=== PATIENT | female | born 1965 | race Hispanic/Latino ===

== ENCOUNTER 2017-12-19 18:33 | Inpatient (IN) | payer SELFPAY ==
[~2017-12-19] VITALS: Ht 162.6 cm; Wt 69.2 kg
--- NOTE | 2017-12-19 21:40 | NUR ---
IN TO START CEFEPIM INFUSION. PT SITTING UP IN BED AND WATCHING TV. NO COMPLAINTS OR REQUESTS AT THIS TIME. WILL CONTINUE TO MONITOR.
--- NOTE | 2017-12-19 22:38 | NUR ---
PT ARRIVED TO CCU ROOM 127 AT 2145 VIA STRETCHER, ACCOMPANIED BY HER SON SRINI WHO IS TRANSLATING FOR US. PT AMBULATED TO BED WITHOUT DIFFICULTY. ALERT/ORIENTED. REPORTS 7/10 PAIN IN EPIGASTRIC REGION OF ABDOMEN, DENIES NEED FOR PAIN MEDICATION AT THIS TIME, STATES SHE WANTS TO WAIT TO SEE IF IT GOES AWAY, STATES SHE IS VERY HUNGRY. LUNGS CLEAR, RA. HR REGULAR. BOWEL TONES ACTIVE, DENIES NAUSEA, ABDOMEN IS OBESE, SOFT, TENDER TO PALPATION. SKIN INTACT, CMS INTACT, NO EDEMA NOTED. IV PATENT, IVF INFUSING WNL. PT UP TO BATHROOM WITH SBA, STEADY ON FEET, VOIDED 500ML AND RETURNED TO BED. VSS, AFEBRILE. PT AND SON INSTRUCTED TO USE CALL LIGHT. WATER AND JELLO PROVIDED, WILL ADVANCE DIET TOLERATED. WILL CONTINUE TO MONITOR CLOSELY.
--- NOTE | 2017-12-20 00:10 | NUR ---
PT REPORTS 8/10 PAIN IN EPIGASTRIC AREA OF ABDOMEN, 15MG IV TORADOL ADMINISTERED. ASSESSMENT COMPLETED, NO CHANGES FROM PREVIOUS ASSESSMENT. PT'S SON AND DAUGHTER AT BEDSIDE. CALL LIGHT IS WITHIN REACH. NO FURHER REQUESTS AT THIS TIME, WILL CONTINUE TO MONITOR.
--- NOTE | 2017-12-20 00:33 | NUR ---
AMB TO BR TO VOID, NYA WELL. DRINKING WATER WELL. AT 3/4 OF SANDWICH BOX.
--- NOTE | 2017-12-20 02:42 | NUR ---
PT RESTING IN BED, NO APPARENT DISTRESS. RR:15, SPO2: 97% ON RA. HR:79. WILL ALLOW FOR REST AND CONTINUE TO MONITOR.
--- NOTE | 2017-12-20 03:55 | NUR ---
ASSESSMENT COMPLETED. PT REPORTS 8/10 EPIGASTRIC PAIN, 15MG IV TORADOL GIVEN, PT ALSO FOUND TO HAVE 100.0 TEMP. LUNGS REMAIN CLEAR, RA. HR REGULAR. BOWEL TONES ACTIVE, ABDOMEN REMAINS TENDER, DENIES NAUSEA. IV PATENT, INFUSING WNL. UP TO BATHROOM, WALKS INDEPENDENTLY ONCE I UNPLUG IV PUMP, VOIDED 800ML AND RETURNED TO BED. SON REMAINS AT BEDSIDE. CALL LIGHT IS WITHIN REACH, WILL CONTINUE TO MONITOR.
--- NOTE | 2017-12-20 06:25 | NUR ---
UP TO BATHROOM, VOIDED 900ML AND THEN RETURNED TO BED. TEMP:99.3 TEMPORALLY. CALL LIGHT IS WITHIN REACH, DENIES FURTHER NEEDS.
--- NOTE | 2017-12-20 08:37 | NUR ---
PT IN BED DENIES PAIN AT THIS TIME. FAMILY AT BEDSIDE TRANSLATING FOR PT.
--- NOTE | 2017-12-20 09:49 | NUR ---
PT AMBULATED TO THE BATHROOM AND BACK, DENIES PAIN AT THIS TIME. VOIDING WELL AND AMBULATES WITHOUT ASSISTANCE EXCEPT FOR THE IV POLE AND LINES.
--- NOTE | 2017-12-20 11:32 | NUR ---
DR BURGESS INTO SEE PT AT THIS TIME, NEW ORDERS AT THIS TIME. IV FLUIDS DECREASED TO 60MLS/HR, PT SITTING UP TO EAT LUNCH. PT WILL BE TRANSFERED TO THE M/S UNIT AT SOME POINT TODAY.
--- NOTE | 2017-12-20 13:15 | NUR ---
PT AWAKE IN BED APPEARS TO BE RESTING COMFORTABLE AT THIS TIME.
--- NOTE | 2017-12-20 14:27 | EKG ---
[facility] [address] [place], [place] [address] Signed Sinus tachycardia Otherwise normal ECG Confirmed by PABLO BURGESS MD ([id number]) on 12/20/2017 2:27:09 PM Electronically Signed By: PABLO BURGESS MD 12/20/17 1427 PATIENT NAME: GRAYMARILYNN HARRELL Electrocardiogram DATE OF : 61 PHYSICIAN: PABLO BURGESS MD REPORT #: [id number] REPORT IS CONFIDENTIAL AND NOT TO BE RELEASED WITHOUT AUTHORIZATION
--- NOTE | 2017-12-20 14:41 | NUR ---
PT UP TO THE BATHROOM VOIDED AND BACK TO BED AT THIS TIME. C/O BEING COLD TWO WARM BLANKETS GIVEN AND ROOM TEMP INCEASED ALSO AT THIS TIME.
--- NOTE | 2017-12-20 14:46 | NUR ---
PT DENIES PAIN AND MADE HC AT THIS TIME.
--- NOTE | 2017-12-20 15:14 | NUR ---
REPORT GIVEN TO M/S NURSE, ALL QUESTIONS ANSWERED AT THIS TIME. PT WILL GO TO ROOM 122 VIA CHAIR.
--- NOTE | 2017-12-20 15:33 | NUR ---
RECIEVED REPORT FROM KATHERINE ROMEO VIA TELEPHONE PRIOR TO PT TRANSFER TO FLOOR. PT TO ROOM 122 FROM CCU AT 1525 ACCOMPANIED BY KATHERINE ROMEO. TRANSFERED BY RECLINER.
--- NOTE | 2017-12-20 15:54 | NUR ---
PT IN BED, ON TELEPHONE WITH SON. PT IS ROMANSH SPEAKING. PT POINTED AT LEFT UPPER ABDOMEN, STATED DELORE. VIA PATIENT CONSUMER MARKETER PHONE PT RATED PAIN 9/10. GAVE TORADOL 30 MG IV PRN.
--- NOTE | 2017-12-20 16:07 | NUR ---
PT REPORTED THROUGH INTERPETER THAT SHE HAD A BM 12/18/17, "A LITTLE BIT", AND IS UNABLE TO BURP OR PASS GAS. DENIED NAUSEA OR EMESIS.
--- NOTE | 2017-12-20 16:35 | NUR ---
NOTIFIED DR. BURGESS THAT PT REPORTS LAST BM WAS 12/18/17, THAT IT WAS SMALL, THAT SHE HAS NOT BEEN ABLE TO BURP OR PASS GAS, AND THAT SHE FEELS OVERLY FULL, AND HAS HAD A DIMINISHED APETITE. ALSO NOTIFIED DR. BURGESS THAT PT DENIED NAUSEA OR EMESIS, BUT DID REPORT 9/10 PAIN TO LEFT UPPER ABD, AND RECIEVED PRN TORADOL. DR. BURGESS PALCED ORDERS FOR DUCOLAX, SENNA.
--- NOTE | 2017-12-20 17:11 | NUR ---
PT SITTING UP IN BED, EATING SOUP, YOGURT FOR DINNER, TOLERATING WELL THUS FAR. RATED PAIN 4/10 TO ABD NOW. PERSONAL SUPPLIES AND CALL LIGHT IN REACH.
--- NOTE | 2017-12-20 18:55 | NUR ---
PT SHOWERED, TOLERATED WELL. PERSONAL SUPPLIES AND CALL LIGHT IN REACH.
--- NOTE | 2017-12-20 19:00 | NUR ---
PATIENT SITTING UP IN BED, FINISHED WITH SHOWER. THIS DATA MIGRATION LEAD DRIED BATHROOM FLOOR. FRESH WATER GIVEN AND REMOVED IV WRAP AND TAPE. CALL LIGHT IN REACH.
--- NOTE | 2017-12-20 19:05 | NUR ---
RECEIVED REPORT FROM RN. PATIENT IS RESTING COMFORTABLY IN BED, BREATHING IS EVEN AND UNLABORED. DENIES NEEDS AT THIS TIME. REPORTS NO PAIN AT THIS TIME. CALL LIGHT WITHIN REACH.
--- NOTE | 2017-12-20 20:22 | NUR ---
PATIENT RESTING COMFORTABLY IN BED, BREATHING IS EVEN AND UNLABORED. DENIES NEEDS AT THIS TIME, DENIES PAIN. ASSESSMENT DONE, MEDICATIONS GIVEN. CALL LIGHT WITHIN REACH, FAMILY AT BEDSIDE.
--- NOTE | 2017-12-20 22:50 | NUR ---
PATIENT RESTING COMFORTABLY IN BED, BREATHING IS EVEN AND UNLABORED. FLACC SCORE OF 0. CALL LIGHT WITHIN REACH.
--- NOTE | 2017-12-21 00:52 | NUR ---
PATIENT REPORTS SORE THROAT, PRN CEPACOL LOZENGE GIVEN FOR COMFORT. DENIES FURTHER NEEDS. CALL LIGHT WITHIN REACH, FAMILY AT BEDSIDE.
--- NOTE | 2017-12-21 02:37 | NUR ---
PATIENT RESTING IN BED, BREATHING IS EVEN AND UNLABORED. STATES THAT SHE CONTINUES TO HAVE PAIN IN THROAT, STATES TO MANAGER OF SELECTION AND ASSESSMENT "IT IS OKAY." SHE SAYS THAT THE CEPACOL LOZENGE IS WORKING. DENIES FURTHER NEEDS. ALSO PROVIDED WARM TEA FOR THROAT COMFORT. CALL LIGHT WITHIN REACH.
--- NOTE | 2017-12-21 03:52 | NUR ---
Pt up to brp, voided, required one person standby assist, back to bed, no c/o pain. C/o abd distention and no bm since Thursday, primary RN Tony notified
--- NOTE | 2017-12-21 05:16 | NUR ---
PATIENT RESTING COMFORTABLY IN BED, BREATHING IS EVEN AND UNLABORED. FLACC SCORE OF 0. CALL LIGHT WITHIN REACH.
--- NOTE | 2017-12-21 06:11 | NUR ---
PATIENT'S NIGHT WAS UNEVENTFUL. SHE HAS BEEN RESTING OFF AND ON THROUGHOUT SHIFT. VSS, URINE OUTPUT QS. COMPLAINED OF PAIN IN THROAT, CEPACOL LOZENGES ORDERED. PATIENT CONTINUES TO REPORT EPIGASTRIC UPSET DUE TO LACK OF BOWEL MOVEMENT, NO BM THIS SHIFT. NIO BOWEL ROUTINE PUT IN PLACE, PRN SENNA GIVEN THIS SHIFT. BOWEL TONES ARE ACTIVE. SBA TO BATHROOM. IV INFUSING, CONTINUES TO HAVE POOR APPETITE. NO ACUTE CHANGES FROM BEGINNING OF SHIFT.
--- NOTE | 2017-12-21 06:37 | NUR ---
PATIENT RESTING IN BED, BREATHING IS EVEN AND UNLABORED. CONTINUES TO REPORT PAIN IN THROAT, CEPACOL LOZENGE GIVEN. OFFERED HOT TEA, PATIENT DENIED. NO OTHER NEEDS AT THIS TIME. CALL LIGHT WITHIN REACH.
--- NOTE | 2017-12-21 07:50 | NUR ---
PT RESTING IN BED, CAR CUSTOMIZER LINE USED TO TRANSLATE PLAN OF CARE FOR TODAY AND UPDATE OF LABS AND ABX TREATMENT. PT REPORTS 6/ PAIN 30MG I.V. TORDOL ADMINISTERED. MA CITRATE AT BEDSIDE TO PROMOTE BM. PT HAS NO OTHER QUESTIONS OR CONCERNS AT THIS TIME. AM ASSESSMENT COMPLETE.
--- NOTE | 2017-12-21 07:51 | NUR ---
PATIENT RESTING IN BED, FAMILY MEMBER IN ROOM. THIS CHRISTMAS TREE CONTRACTOR ASSISTED PATIENT TO WASH HANDS AND FACE WITH WARM WASH CLOTH. ORAL CARE SET UP IN BATHROOM FOR PATIENT. RN IN ROOM. FRESH ICE WATER AT BEDSIDE. CALL LIGHT IN REACH, NO OTHER NEEDS AT THIS TIME.
--- NOTE | 2017-12-21 09:30 | NUR ---
PT UP TO BATHROOM WITH STANDBY ASSIST. VOIDED 900ML. CLEAR YELLOW URINE, NO ODOR NOTED. BED CHANGE-DRAW SHEET AND PILLOW CASE. PT UP AMBUALTING IN HALLS AT THIS TIME WITH FAMILY. PT REPORTS PAIN 4/10 AT THIS TIME PER ICELANDIC SMILE CHART.
--- NOTE | 2017-12-21 10:15 | NUR ---
RN IN ROOM WITH PATIENT. FAMILY MEMBER IN ROOM. FRESH ICE WATER AT BEDSIDE TABLE, PATIENT SITTING UP WITH HOT PACK ON ABDOMEN. CALL LIGHT IN REACH. NO OTHER NEEDS AT THIS TIME.
--- NOTE | 2017-12-21 11:06 | NUR ---
PT REPORTS PAIN 8/10 PER MAURITIAN SMILE CHART AT RIGHT FLANK/ABD, RADIATES AROUND. HOT PACK PROVIDED AND TYLENOL ADMINISTERED. UPDATED ON PT PAIN AND ACTIVITY. NO NEW ORDERS AT THIS TIME.
--- NOTE | 2017-12-21 12:01 | NUR ---
PATIENT SITTING UP IN BED WITH HOT PAD ON ABDOMEN. RN IN ROOM ADMINISTERING MEDS. VITALS TAKEN. FRESH ICE WATER AT BEDSIDE TABLE. CALL LIGHT IN REACH. NO OTHER NEEDS AT THIS TIME.
--- NOTE | 2017-12-21 13:21 | NUR ---
INTO PT ROOM COMPLETED ASSESSMENT AND DISCUSSED PLAN OF CARE WITH PATIENT AND FAMILY AT BEDSIDE INCLUDING PATIENT'S SON. PT REPORTS SORE THROAT AND COUGH. MD TO PLACE NEW ORDERS WELL SUPPOSITORY TO HELP WITH CONSTIPATION.
--- NOTE | 2017-12-21 14:50 | NUR ---
MET WITH PATIENT AND HER SON SRINI WHO SPEAKS FLUENT CITIZEN OF [place]. PATIENT SPEAKS MINIMAL AND SO HE AND HIS INTERPRETED. SHE IS FEELING MUCH BETTER. WE DISCUSSED HER NEEDING A PCP AND IMPORTANCE OF THIS. THEY STATE THEY ARE GOING TO TAKE HER TO [facility] IN [place] AND GET HER SIGNED UP. DISCUSSED IMPORTANCE OF UNDERSTANDING DISCHARGE INSTRUCTIONS, MEDICATIONS, ACTIVITY AND FOLLOW UP NEED. THEY ALL STATE UNDERSTANDING. THEY STATED THAT DR BURGESS WAS IN AND HE ANSWERED QUESTIONS, TOO. THEY WILL TRY TO BE HERE FOR DISCHARGE TO MAKE SURE PATIENT UNDERSTANDS, IF NOT, WE CAN CALL THEM AND THEY WILL TALK WITH HER BY PHONE.
--- NOTE | 2017-12-21 14:54 | NUR ---
PT UP AMBULATING IN HALLS. HAD SMEAR BM. SUPPOSITORY GIVEN TO PATIENT, SHE WANTED TO PLACE IT HERSELF. WILL MONITOR FOR BM. PT REPORTS PAIN IS 3-4/10 AT THIS TIME SHE SAID SHE WOULD LIKE THE MOTRIN, ADMINISTERED.
--- NOTE | 2017-12-21 15:07 | NUR ---
PATIENT RESTING. RN IN ROOM. VITALS TAKEN. CALL LIGHT IN REACH. FRESH ICE WATER. NO OTHER NEEDS AT THIS TIME.
--- NOTE | 2017-12-21 15:56 | NUR ---
PT GIVEN NEW WARM PACK TO RIGHT FLANK PAIN SITE AND WARM BLANKET, PT TO BED TO REST AFTER AMBULATING IN HALLS. PT REPORTS PAIN IS TOLERABLE AT THIS TIME AT 4/10.
--- NOTE | 2017-12-21 17:07 | NUR ---
PT HAS BEEN UP AMBULATING IN HALLS FREQUESTLY, SHE REPORTS WALKING HELPS WITH PAIN. SHE HAS HAD MG CITRATE THIS AM, HAD A SMALL SMEAR OF BM, SUPPOSITORY THIS AFTERNOON. HER PAIN HAS BEEN 3-6/10 PAIN THROUGHOUT SHIFT. MOTRIN AND WARM PACKS HAVE BEEN AFFECTIVE SHE RPEORTS 5/10 PAIN IS TOELRABLE FOR HER. SHE HAS BEEN NAPPING THIS AFTERNOON. V/S STABLE, GOOD URINE OUT TODAY. S/L NOW. STILL OPERATOR LINE USED X2 TODAY AND SON WAS IN WHEN ROUNDED AND WAS ABLETO TRANSLATE. WAS ALSO ABLE TO UPDATE FAMILY ON PT PLAN OF CARE.
--- NOTE | 2017-12-21 17:27 | NUR ---
PATIENT RESTING ON BEDSIDE, DINNER ON BEDSIDE TABLE. CALL LIGHT IN REACH. NO OTHER NEEDS AT THIS TIME.
--- NOTE | 2017-12-21 19:20 | NUR ---
RECEIVED REPORT FROM RN. PATIENT IS RESTING COMFORTABLY IN BED, BREATHING IS EVEN AND UNLABORED. CONTINUES TO REPORT DISCOMFORT IN THROAT. DENIES NEEDS AT THIS TIME. CALL LIGHT WITHIN REACH, FAMILY AT BEDSIDE.
--- NOTE | 2017-12-21 22:25 | NUR ---
PATIENT RESTING COMFORTABLY IN BED, BREATHING IS EVEN AND UNLABORED. REPORTS CONTINUED DISCOMFORT IN THROAT, HOT TEA GIVEN AND CEPACOL LOZENGE. PATIENT DENIES FURTHER NEEDS. ASSESSMENT DONE. CALL LIGHT WITHIN REACH.
--- NOTE | 2017-12-21 23:41 | NUR ---
PATIENT ASSISTED TO BATHROOM WITH SBA. NOW RESTING IN BED, WARM BLANKET PROVIDED. DENIES FURTHER NEEDS. CALL LIGHT WITHIN REACH.
--- NOTE | 2017-12-22 02:20 | NUR ---
PATIENT RESTING COMFORTABLY IN BED, BREATHING IS EVEN AND UNLABORED. CONTINUES TO REPORT DISCOMOFRT IN THROAT, HOT TEA AND CEPACOL LOZENGE GIVEN. PATIENT DENIES FURTHER NEEDS. ASSESSMENT DONE. CALL LIGHT WITHIN REACH.
--- NOTE | 2017-12-22 03:56 | NUR ---
PATIENT RESTING COMFORTABLY IN BED, BREATHING IS EVEN AND UNLABORED. DENIES NEEDS AT THIS TIME. CALL LIGHT WITHIN REACH.
--- NOTE | 2017-12-22 05:14 | NUR ---
PATIENT'S NIGHT WAS UNEVENTFUL. SHE HAS BEEN RESTING THROUGHOUT SHIFT. VSS, URINE OUTPUT QS. NO COMPLAINTS OF ABD OR FLANK PAIN, CONTINUES TO REPORT THROAT DISCOMFORT. NO ACUTE CHANGES FROM BEGINNING OF SHIFT.
--- NOTE | 2017-12-22 07:45 | NUR ---
REPORT RECEIVED FROM KATHERINE GANDHI. PT AWAKE AND UP IN BED. PT STATES HER THROAT IS QUITE SORE WILL ADMINISTER MOTRIN. BREAKFAST IN ROOM.
--- NOTE | 2017-12-22 08:15 | NUR ---
PATIENT SITTING UP IN BED, EATING BREAKFAST. FAMILY IN THE ROOM. THIS COMMERCIAL LITIGATION ASSOCIATE SET PATIENT UP WITH WARM WASH CLOTH TO WASH FACE AND HANDS AFTER BREAKFAST. ORAL CARE SET UP IN BATHROOM FOR PATIENT. CALL LIGHT IN REACH. NO OTHER NEEDS AT THIS TIME.
--- NOTE | 2017-12-22 08:51 | NUR ---
PT UP WALKING IN ROOM. HUSBSND IN ROOM. STATES HER THROAT PAIN IS 8\10. FLANK PAIN IS MINIMAL TO NONE. ADMINISTERED MOTRIN FOR PAIN.
--- NOTE | 2017-12-22 11:40 | NUR ---
PT SITTING ON EDGE OF BED EATING LUNCH. STATES THAT SHE STILL HAS A LITTLE PAIN IN HER THROAT BUT THE FLANK AND ABDOMINAL PAIN IS COMPLETELY GONE.
--- NOTE | 2017-12-22 12:32 | NUR ---
INTO ASSESS AND DISCUSS PLAN OF CARE WITH PT AND SPOUSE. ENDO TECH LINE IN USE AT THIS TIME
--- NOTE | 2017-12-22 13:04 | NUR ---
PATIENT SITTING UP ON COUCH WITH FAMILY MEMBER. CALL LIGHT IN REACH. FRESH COLD WATER AT BEDSIDE TABLE. NO OTHER NEEDS AT THIS TIME.
--- NOTE | 2017-12-22 13:10 | NUR ---
PT UP WALKING IN [place] WITH . DENIES CONCERNS ATT.
--- NOTE | 2017-12-22 14:14 | NUR ---
THIS LINER INSERTER SET PATIENT UP IN BATHROOM FOR A SHOWER. PATIENT UNDERSTANDS TO PULL CORD IF SHE NEEDS HELP. PATIENTS FAMILY IN THE ROOM. CALL CORD IN REACH. NO OTHER NEEDS AT THIS TIME.
--- NOTE | 2017-12-22 15:24 | NUR ---
PT SITTING ON SIDE OF BED TALKING TO FAMILY AFTER TAKING A SHOWER. TOLERATED WELL AND HAS NO FURTHER CONCERNS.
--- NOTE | 2017-12-22 16:26 | NUR ---
PATIENT RESTING IN BED. FAMILY IN ROOM. FRESH COLD WATER AT BEDSIDE TABLE. CALL LIGHT IN REACH. NO OTHER NEEDS AT THIS TIME.
--- NOTE | 2017-12-22 18:06 | NUR ---
PATIENT RESTING IN BED. PATIENTS FAMILY IN ROOM. FRESH COLD WATER AT BEDSIDE TABLE. CALL LIGHT IN REACH. NO OTHER NEEDS AT THIS TIME.
--- NOTE | 2017-12-22 18:10 | NUR ---
PT WALKED IN RUTH SEVERAL TIMES. INDEPENDENT IN ROOM. DENIES PAIN AFTER MOTRIN THIS MORNING. SLIGHT DISCOMFORT IN THROAT, GIVEN CEPACOL. SHOWERED. DC TOMORROW. CULTURES STILL PENDING.
--- NOTE | 2017-12-22 19:20 | NUR ---
RECEIVED REPORT FROM RN. PATIENT RESTING IN BED, BREATHING EVEN AND UNLABORED. DENIES NEEDS. CALL LIGHT WITHIN REACH, FAMILY AT BEDSIDE.
--- NOTE | 2017-12-22 22:23 | NUR ---
PATIENT RESTING IN BED, BREATHING IS EVEN AND UNLABORED. CEPACOL LOZENGE GIVEN FOR THROAT DISCOMFORT. PATIENT DENIES FURTHER NEEDS. CALL LIGHT WITHIN REACH.
--- NOTE | 2017-12-22 23:28 | NUR ---
PATIENT RESTING COMFORTABLY IN BED, BREATHING IS EVEN AND UNLABORED. FLACC SCORE OF 0. CALL LIGHT WITHIN REACH.
--- NOTE | 2017-12-23 02:55 | NUR ---
PATIENT RESTING IN BED, BREATHING IS EVEN AND UNLABORED. REPORTS DISCOMOFRT IN THROAT, OFFERED HOT TEA, GAVE MOTRIN. DENIES FURTHER NEEDS. CALL LIGHT WITHIN REACH.
--- NOTE | 2017-12-23 05:07 | NUR ---
PATIENT'S NIGHT WAS UNEVENTFUL. SHE HAS BEEN RESTING THROUGHOUT SHIFT. VSS, URINE OUTPUT QS, PAIN WELL CONTROLLED WITH PROVIDED INTERVENTIONS. NO COMPLAINTS OF PAIN IN ABD, DISCOMOFRT IN THROAT ONLY. NO ACUTE CHANGES FROM BEGINNING OF SHIFT.
--- NOTE | 2017-12-23 07:45 | NUR ---
PATIENT RESTING EYES CLOSED. FAMILY MEMBER RESTING ON COUCH. FRESH WATER ON BEDSIDE TABLE. ORAL CARE SET UP IN BATHROOM WITH WASH CLOTH FOR PATIENT. CALL LIGHT IN REACH. NO OTHER NEEDS AT THIS TIME.
--- NOTE | 2017-12-23 07:54 | NUR ---
PT ASLEEP IN BED WITH ON COUCH. KATHERINE GANDHI STATES THAT SHE HAD A GOOD NIGHT AND SLEPT WELL.
--- NOTE | 2017-12-23 08:54 | NUR ---
PATIENT STATED SHE HAD WO BM'S BUT HAD FLUSHED. THIS COAL CRUSHER OPERATOR DISCUSSED WITH PATIENT SHOWER OPTIONS, PATIENT STATED SHE WOULD LIKE TO AT LEAST WASH HER HAIR. THIS COAL CRUSHER OPERATOR SET UP PATIENT FOR A SHOWER. PATIENT UNDERSTANDS TO PULL CORD FOR HELP. NO OTHER NEEDS AT THIS TIME.
--- NOTE | 2017-12-23 09:00 | NUR ---
PATIENT DECIDED SHE WANTED TO WAIT TO SHOWER UNTIL SHE GETS HOME. PATIENT SET UP WITH WIPES FOR BED BATH INSTEAD. CALL LIGHT IN REACH. NO OTHER NEEDS AT THIS TIME.
--- NOTE | 2017-12-23 09:16 | NUR ---
PT AWAKE AND AMBULATING IN ROOM. STATES THE PAIN IN HER THROAT IS STILL AROUND A 3\10. ALSO HAS SOME PAIN UPON AWAKENING THIS MORNING IN HER UPPER BACK. STATES IT MIGHT BE FROM COUGHING SO MUCH IN THE NIGHT. LUNG SOUNDS CLEAR. RN STUDENT HELPED TRANSLATE AND PT HAD QUESTIONS REGARDING LOVENOX SHOT FROM LAST NIGHT. ORDERED BREAKFAST.
--- NOTE | 2017-12-23 10:42 | NUR ---
PATIENT RESTING ON BEDSIDE. FAMILY IN ROOM. FRESH COLD WATER AT BEDSIDE TABLE. CALL LIGHT IN REACH. NO OTHER NEEDS AT THIS TIME.
[2017-12-23] MEDS ORDERED: BACTRIM DS TAB1 EACH PO (12:24)
[2017-12-23] MEDS ORDERED: IBUPROFEN400 MG PO (12:25)
[2017-12-23] MEDS ORDERED: VITAMIN D1000 UNI1 PO (12:33)
[2017-12-23] MEDS ORDERED: CEPACOL SORE T1 EAC5 PO (12:34)
[2017-12-23] MEDS ORDERED: ROBAFEN-DM SYR118 ML PO (12:34)
--- NOTE | 2017-12-23 13:24 | NUR ---
PT IV REMOVED WNL. DISCHARGE INFORMATION GIVEN VIA PRIMARY HEALTH ORGANISATION MANAGER, PT AND VERBALIZED UNDERSTANDING. VS STABLE. BELONGINGS RETURNED AND PT WHEELED OUT TO CAR BY DURALUMIN METALWORKER.
== END 2017-12-23 13:10 | disposition home or self-care (01) | DRG 872 ==
LOC: ED 18:33 → MS 21:11 → CCU 21:11 → MS 12-20 15:25
PROVIDERS: ADMIT Internal Medicine
DX: A41.51 Sepsis due to Escherichia coli [E. coli] (principal); N10 Acute pyelonephritis; B96.20 Unspecified Escherichia coli [E. coli] as the cause of diseases classified elsewhere; E55.9 Vitamin D deficiency, unspecified; I10 Essential (primary) hypertension; J02.9 Acute pharyngitis, unspecified; J45.20 Mild intermittent asthma, uncomplicated; Z88.0 Allergy status to penicillin
CPT/HCPCS: 36415; 71045; 74176; 80053; 81001; 82306; 83605; 83690; 83735; 84075; 84080; 85025; 87040; 87077; 87088; 87186; 93005; 93010; 96374; 96375; 99285; J0696; J1650; J1885; J2405; J3010; J7030; J7120

== ENCOUNTER 2022-02-16 11:44 | Emergency (ER) | payer SELFPAY ==
[~2022-02-16] VITALS: Ht 162.6 cm; Wt 56.7 kg
[~2022-02-16 11:44] MED LIST: BACTRIM DS TAB1 EACH PO; CEPACOL SORE T1 EAC5 PO; IBUPROFEN400 MG PO; ROBAFEN-DM SYR118 ML PO; VITAMIN D1000 UNI1 PO
[2022-02-16] MEDS ORDERED: METFORMIN HCL500 M2 PO (12:07)
[2022-02-16] MEDS ORDERED: ADULT LOW DOSE81 MG PO (12:08)
[2022-02-16] MEDS ORDERED: ATORVASTATIN CA20 MG PO (12:08)
[2022-02-16] MEDS ORDERED: MELOXICAM15 MG PO (12:09)
[2022-02-16] MEDS ORDERED: LISINOPRIL20 MG PO (12:09)
[2022-02-16] MEDS ORDERED: LISINOPRIL10 MG PO (14:31)
[2022-02-16] MEDS ORDERED: METFORMIN HCL500 MG PO (14:31)
[2022-02-16] MEDS ORDERED: CYCLOBENZAPRINE10 MG PO (14:31)
--- NOTE | 2022-02-16 21:44 | EKG ---
[facility] [address] [place], [place] [address] Signed Normal sinus rhythm Low voltage QRS Inferior infarct , age undetermined Cannot rule out Anterior infarct , age undetermined Abnormal ECG When compared with ECG of 19-DEC-2017 19:32, Minimal criteria for Anterior infarct are now present No significant change was found Confirmed by ANOOP CONTEH MD ([id number]) on 02/16/2022 9:44:11 PM Electronically Signed By: ANOOP CONTEH MD 02/16/22 2144 PATIENT NAME: GRAY MARILYNN FAIRCHILD Electrocardiogram DATE OF : 61 PHYSICIAN: ANOOP CONTEH MD REPORT #: [id number] REPORT IS CONFIDENTIAL AND NOT TO BE RELEASED WITHOUT AUTHORIZATION
== END 2022-02-16 14:53 | disposition home or self-care (01) ==
LOC: ED 11:44
DX: S16.1XXA Strain of muscle, fascia and tendon at neck level, initial encounter (principal); E11.65 Type 2 diabetes mellitus with hyperglycemia; X58.XXXA Exposure to other specified factors, initial encounter; J45.909 Unspecified asthma, uncomplicated; I10 Essential (primary) hypertension; E78.5 Hyperlipidemia, unspecified; Z88.0 Allergy status to penicillin; Z79.899 Other long term (current) drug therapy; Z79.84 Long term (current) use of oral hypoglycemic drugs; Z79.82 Long term (current) use of aspirin
CPT/HCPCS: 36415; 71045; 80048; 84484; 85025; 93005; 93010; 96374; 99284-25; A9270; J1885

== ENCOUNTER 2022-12-25 10:00 | Emergency (ER) | payer OTHER ==
[~2022-12-25] VITALS: Ht 162.6 cm; Wt 70.4 kg
[~2022-12-25 10:00] MED LIST changes: +ADULT LOW DOSE81 MG PO; +ATORVASTATIN CA20 MG PO; +CYCLOBENZAPRINE10 MG PO; +LISINOPRIL10 MG PO; +LISINOPRIL20 MG PO; +MELOXICAM15 MG PO; +METFORMIN HCL500 M2 PO; +METFORMIN HCL500 MG PO
[2022-12-25] MEDS ORDERED: ADVAIR HFA 115-12 GM INH (10:20)
--- NOTE | 2022-12-25 22:06 | EKG ---
[facility] [address] [facility] [place] [address] Signed Normal sinus rhythm Inferior infarct , age undetermined Cannot rule out Anterior infarct , age undetermined Abnormal ECG Confirmed by Javy Singh MD () on 12/25/2022 10:06:32 PM Electronically Signed By: JAVY SINGH MD 12/25/222205 PATIENT NAME: GRAYMARILYNN HARRELL Electrocardiogram DATE OF : 61 PHYSICIAN: JAVY SINGH MD REPORT #: [id number] REPORT IS CONFIDENTIAL AND NOT TO BE RELEASED WITHOUT AUTHORIZATION
== END 2022-12-25 10:49 | disposition home or self-care (01) ==
LOC: ED 10:00
DX: B34.9 Viral infection, unspecified (principal); J45.909 Unspecified asthma, uncomplicated; I10 Essential (primary) hypertension; E11.9 Type 2 diabetes mellitus without complications; E78.5 Hyperlipidemia, unspecified; Z88.0 Allergy status to penicillin; Z79.899 Other long term (current) drug therapy; Z79.84 Long term (current) use of oral hypoglycemic drugs; Z79.82 Long term (current) use of aspirin
CPT/HCPCS: 93005; 93010; 99284-25